=== PATIENT | female | born 1995 | race African-American/Black ===

== ENCOUNTER 2016-10-14 17:55 | Emergency (ER) | payer OTHER ==
[~2016-10-14] VITALS: Ht 160 cm; Wt 75.0 kg
[~2016-10-14 17:55] MED LIST: CEPH500C3 PO; Z.0.NO CURRENT MEDS
[2016-10-14 17:56] VITALS: BP 121/62; PULSE 90; RESP 16; TEMP 98.7; O2SAT 97
[2016-10-14] MEDS ORDERED: IBUPROFEN 800 MG TAB PO ONE (18:15)
[2016-10-14] MEDS ORDERED: TETANUS/DIPHTHERIA TOXOID ADULT 0.5 ML VIAL IM ONE (18:15)
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
[2016-10-14] MEDS ORDERED: HYDR-3533 PO (19:01)
== END 2016-10-14 19:08 | disposition home or self-care (01) ==
LOC: NEPB 17:55
DX: S02.2XXA Fracture of nasal bones, initial encounter for closed fracture (principal); Z23 Encounter for immunization; Y04.0XXA Assault by unarmed brawl or fight, initial encounter; Y99.9 Unspecified external cause status; Y93.9 Activity, unspecified
CPT/HCPCS: 70486; 90471; 90714